=== PATIENT | male | born 1975 | race Caucasian/White ===

== ENCOUNTER 2024-03-22 06:35 | Day surgery (SDC) | payer OTHER, SELFPAY ==
[2024-03-10 08:59] LABS: Hematocrit 46.6 % (39.0-52.0); Hemoglobin 16.7 g/dL (13.0-18.0); Mean Corp Hgb Conc. 35.8 g/dL (33.0-37.0); Mean Corpuscular Hgb 31.5 pg (27.0-31.0); Mean Corpuscular Volume 87.8 fL (80.0-94.0); Mean Platelet Volume 9.2 fL (7.4-10.4); Platelet Count 221 10^3/uL (130-400); Red Blood Cell Count 5.31 10^6/uL (4.70-6.10); Red Cell Dist. Width 12.3 % (11.5-14.5); White Blood Cell Count 6.9 10^3/uL (4.8-10.8)
[2024-03-10 09:40] LABS: Blood Urea Nitrogen 15 mg/dl (9-20); Calcium 9.2 mg/dl (8.4-10.2); Carbon Dioxide 30 mmol/L (22-30); Chloride 99 mmol/L (98-107); Glucose 99 mg/dl (70-99); Potassium 4.5 mmol/L (3.5-5.1); Sodium 138 mmol/L (135-145); eGFR > 60.00
[2024-03-10 13:48] VITALS: BMI 36.8
[2024-03-22] VITALS (11 sets, daily range): BP systolic 110–145; BP diastolic 78–93; BMI 36.8
[2024-03-22] MEDS: TYLENOL 1000 MG PO (10:51)
[2024-03-22] MEDS: NORMOSOL-R/PLASMALYTE-A 1000 IV (10:51)
[2024-03-22] MEDS: DILAUDID 0.5 MG IV (15:03)
[2024-03-22] MEDS: TYLENOL 650 MG PO (16:22)
[2024-03-22] MEDS: ROXICODONE 5 MG PO (16:22)
== END 2024-03-22 16:39 | disposition home or self-care (01) ==
LOC: SDS 06:35
PROVIDERS: ATTENDING PHYSICIAN Surgery; FAMILY PHYSICIAN Family Medicine
PROC: 8E0W4CZ Robotic Assisted Procedure of Trunk Region, Percutaneous Endoscopic Approach (ICD-10-PCS; 2024-03-22)
PROC: 0WUF4JZ Supplement Abdominal Wall with Synthetic Substitute, Percutaneous Endoscopic Approach (ICD-10-PCS; 2024-03-22)
DX: K42.9 Umbilical hernia without obstruction or gangrene (principal)
CPT/HCPCS: 49591; 36415; 80048; 85027; 93005; C1781